=== PATIENT | male | born 1960 | race Asian ===

== ENCOUNTER 2025-01-02 06:17 | Outpatient (CLI) | payer MEDICARE, BC | END 2025-01-02 23:59 | disposition home or self-care (01) | LOC: MRI02 06:17 | PROVIDERS: ATTEND Family Medicine | DX: M47.26 Other spondylosis with radiculopathy, lumbar region (principal); M47.22 Other spondylosis with radiculopathy, cervical region; M51.17 Intervertebral disc disorders with radiculopathy, lumbosacral region; M50.10 Cervical disc disorder with radiculopathy, unspecified cervical region; M48.061 Spinal stenosis, lumbar region without neurogenic claudication; M48.02 Spinal stenosis, cervical region | CPT/HCPCS: 72141; 72148 ==